=== PATIENT | male | born 1970 | race African-American/Black ===

== ENCOUNTER → 2020-02-08 | Outpatient (CLI) | payer BC ==
--- NOTE | 2020-02-08 13:44 | RAD ---
KNEE RIGHT 2V DATE: 02/08/2020 12:00 AM INDICATION: Reason: RIGHT KNEE PAIN / Spl. Instructions: / History: COMPARISON: None. FINDINGS: Bones: There is no evidence of acute fracture or dislocation. Joints: The joint spaces are normal. There is no joint effusion. Miscellaneous: None. IMPRESSION: Normal exam Electronically signed by: Jose Jo MD (02/08/2020 1:41 PM) [id number]
== END ==
LOC: DXRAD 09:32
DX: M25.561 Pain in right knee (principal)
CPT/HCPCS: 73560

== ENCOUNTER 2021-04-12 09:32 | Inpatient (IN) | payer BC ==
[~2021-04-12] VITALS: Ht 182.9 cm; Wt 104.8 kg
[2021-04-12] MEDS ORDERED: ONDANSETRON PF 4 MG/2 ML VIAL. ONE (11:00)
[2021-04-12] MEDS ORDERED: ONDANSETRON PF 4 MG/2 ML VIAL. IVP ONE (11:00)
[2021-04-12] MEDS ORDERED: ONDANSETRON ODT 4 MG TAB.RAPDIS PO ONE (11:00)
[2021-04-12] MEDS ORDERED: IV RINGERS SOLUTION,LACTATED 1,000 ML IV ONE (11:00)
--- NOTE | 2021-04-12 11:30 | RAD ---
EXAM: XR CHEST 1V 04/12/2021 10:59 AM CLINICAL INDICATION: Shortness breath, Covid positive COMPARISON: None TECHNIQUE: AP view of the chest FINDINGS: The heart is normal in size. Lungs are hypoexpanded. There are consolidative opacities in the right upper lobe and left lung base. No pleural effusion or pneumothorax. No acute osseous abnorm ality. IMPRESSION: Bilateral airspace opacities suspicious for multifocal pneumonia. Electronically signed by: Anna Berg MD (04/12/2021 11:27 AM) [id number]
[2021-04-12 11:54] LABS: BASO # 0.1 x10^3/uL (0.0-0.2); BASO % 0 % (0-3); EOS % 0 % (0-3); HEMATOCRIT 43.4 % (39.0-53.0); HEMOGLOBIN 14.8 g/dL (13.0-17.5); LYMPH # 0.8 x10^3/uL (1.0-4.8); LYMPH % 5 % (24-48); MEAN CORPUSCULAR HEMOGLOBIN 28 pg (25-35); MEAN CORPUSCULAR HGB CONC 34 g/dL (31-37); MEAN CORPUSCULAR VOLUME 83 fL (79-100); MONO # 1.3 x10^3/uL (0.0-1.1); MONO % 8 % (0-9); NEUT # 13.7 x10^3uL (1.8-7.7); NEUT % 86 % (31-73); PLATELET COUNT 548 x10^3/uL (140-400); RED BLOOD COUNT 5.22 x10^6/uL (4.30-5.70); RED CELL DISTRIBUTION WIDTH 14.3 % (11.5-14.5); WHITE BLOOD COUNT 15.9 x10^3/uL (4.0-11.0)
--- NOTE | 2021-04-12 12:07 | EKG ---
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
[2021-04-12 12:09] LABS: ALBUMIN 2.4 g/dL (3.4-5.0); ALBUMIN/GLOBULIN RATIO 0.4 (1.0-1.7); CALCIUM 8.6 mg/dL (8.5-10.1); CREATININE 1.2 mg/dL (0.7-1.3); GFR 77.5; MAGNESIUM 2.6 mg/dL (1.8-2.4); TOTAL BILIRUBIN 0.9 mg/dL (0.2-1.0); TOTAL PROTEIN 8.2 g/dL (6.4-8.2)
[2021-04-12] MEDS ORDERED: IOHEXOL 350 MG/ML 100 ML VIAL. ONE (12:09)
[2021-04-12] MEDS ORDERED: IOHEXOL 350 MG/ML 100 ML VIAL. IV ONE (12:15)
[2021-04-12 12:24] LABS: INFLUENZA A PATIENT NEGATIVE (NEGATIVE); INFLUENZA B PATIENT NEGATIVE (NEGATIVE)
--- NOTE | 2021-04-12 12:35 | PHYS DOC ---
Past History Past Medical History: Hypertension (MAIK KELLY) Past Surgical History: Other Additional Past Surgical Histo: HERNIA REPAIR, RIGHT ACHILLES REPAIR (MAIK KELLY) Smoking: Non-smoker Alcohol Use: None Drug Use: None (MAIK KELLY) General Adult EDM: Chief Complaint: SHORTNESS OF BREATH HPI: HPI: Patient is a 50 year old male with history of hypertension who presents with 1 week history of shortness of breath, nasal congestion and NVD. Patient reports that he noticed his symptoms worsened significantly on Saturday (4 days ago at). Today, he is not able to keep down clear fluids. He tested positive for COVID- 19 2 days ago. Patient denies fever, chills, night sweats, cough, sore throat, chest pain, palpitations. He denies sick contacts, vaccination against COVID-19 or flu shot this season. (MAIK KELLY) Review of Systems: Review of Systems: Constitutional: See HPI Eyes: Denies change in visual acuity, visual field deficits or discharge HENT: See HPI Respiratory: See HPI Cardiovascular: Denies chest pain, palpitations or edema GI: See HPI : Denies dysuria or hematuria Musculoskeletal: Denies back pain or joint pain Integument: Denies rash or other skin lesion Neurologic: Denies headache, focal weakness or sensory changes (MAIK KELLY) Current Medications: Current Meds: Current Medications Medications (Trade) Dose Ordered Sig/Grace Start Time Stop Time Status Last Admin Dose Admin Iohexol (Omnipaque 350 Mg/ml) 100 ml 1X ONCE 04/12/21 12:15 04/12/21 12:16 UNV Lactated Ringer's 1,000 ml @ 1,000 mls/hr 1X ONCE 04/12/21 11:00 04/12/21 11:59 DC 04/12/21 11:23 1,000 MLS/HR Ondansetron HCl (Zofran Odt) 4 mg 1X ONCE 04/12/21 11:00 04/12/21 11:01 DC Ondansetron HCl (Zofran) 4 mg STK-MED ONCE 04/12/21 11:00 04/12/21 11:01 DC (MAIK KELLY) Allergies: Allergies: Allergies Coded Allergies Type Severity Reaction Last Updated Verified No Known Drug Allergies 04/12/21 No (MAIK KELLY) Physical Exam: PE: Constitutional: Well developed, well nourished, no acute distress, patient appears fatigued. HENT: Normocephalic, atraumatic, bilateral external ears normal, nose normal. Eyes: EOMI, conjunctiva normal, no discharge. Neck: Normal range of motion, no stridor. Cardiovascular: RRR without murmurs, rubs or gallops. Pulmonary: Lung sounds clear to auscultation bilaterally but diminished throughout R>L. Skin: Warm, dry, no erythema, no rash. Extremities: No tenderness, no cyanosis, no clubbing, ROM intact, no edema. Neurologic: Alert and oriented x4, motor and sensory function grossly intact, no focal deficits noted. (MAIK KELLY) Current Patient Data: Labs: Laboratory Tests Test 04/12/21 11:15 04/12/21 11:25 White Blood Count 15.9 x10^3/uL (4.0-11.0) Red Blood Count 5.22 x10^6/uL (4.30-5.70) Hemoglobin 14.8 g/dL (13.0-17.5) Hematocrit 43.4 % (39.0-53.0) Mean Corpuscular Volume 83 fL (79-100) Mean Corpuscular Hemoglobin 28 pg (25-35) Mean Corpuscular Hemoglobin Concent 34 g/dL (31-37) Red Cell Distribution Width 14.3 % (11.5-14.5) Platelet Count 548 x10^3/uL (140-400) Neutrophils (%) (Auto) 86 % (31-73) Lymphocytes (%) (Auto) 5 % (24-48) Monocytes (%) (Auto) 8 % (0-9) Eosinophils (%) (Auto) 0 % (0-3) Basophils (%) (Auto) 0 % (0-3) Neutrophils # (Auto) 13.7 x10^3uL (1.8-7.7) Lymphocytes # (Auto) 0.8 x10^3/uL (1.0-4.8) Monocytes # (Auto) 1.3 x10^3/uL (0.0-1.1) Eosinophils # (Auto) 0.0 x10^3/uL (0.0-0.7) Basophils # (Auto) 0.1 x10^3/uL (0.0-0.2) Sodium Level 131 mmol/L (136-145) Potassium Level 3.0 mmol/L (3.5-5.1) Chloride Level 90 mmol/L (98-107) Carbon Dioxide Level 28 mmol/L (21-32) Anion Gap 13 (6-14) Blood Urea Nitrogen 20 mg/dL (8-26) Creatinine 1.2 mg/dL (0.7-1.3) Estimated GFR (Cockcroft-Gault) 77.5 BUN/Creatinine Ratio 17 (6-20) Glucose Level 122 mg/dL (70-99) Lactic Acid Level 2.4 mmol/L (0.4-2.0) Calcium Level 8.6 mg/dL (8.5-10.1) Magnesium Level 2.6 mg/dL (1.8-2.4) Total Bilirubin 0.9 mg/dL (0.2-1.0) Aspartate Amino Transf (AST/SGOT) 32 U/L (15-37) Alanine Aminotransferase (ALT/SGPT) 31 U/L (16-63) Alkaline Phosphatase 88 U/L (46-116) Total Protein 8.2 g/dL (6.4-8.2) Albumin 2.4 g/dL (3.4-5.0) Albumin/Globulin Ratio 0.4 (1.0-1.7) Lipase 40 U/L (73-393) Influenza Type A (Rapid) Negative (NEGATIVE) Influenza Type B (Rapid) Negative (NEGATIVE) SARS-CoV-2 Antigen (Rapid) Negative (NEGATIVE) Vital Signs: Vital Signs Date Time Temp Pulse Resp B/P (MAP) Pulse Ox O2 Delivery O2 Flow Rate FiO2 04/12/21 11:43 77 24 132/69 (90) 95 Nasal Cannula 6.0 04/12/21 11:13 81 24 166/76 (106) 93 Nasal Cannula 6.0 04/12/21 10:35 99.2 94 24 163/87 (112) 76 Room Air (MAIK KELLY) EKG: EKG: EKG Interpreted by Dr. Pedersen at 1201: Regular rate and rhythm 77 bpm with no ectopic beats. T wave inversions in leads III and aVF. QT 420 ms/QTc 477 ms. No STEMI. (MAIK KELLY) Radiology/Procedures: Radiology/Procedures: PROCEDURE: CHEST AP ONLY EXAM: XR CHEST 1V 04/12/2021 10:59 AM CLINICAL INDICATION: Shortness breath, Covid positive COMPARISON: None TECHNIQUE: AP view of the chest FINDINGS: The heart is normal in size. Lungs are hypoexpanded. There are consolidative opacities in the right upper lobe and left lung base. No pleural effusion or pneumothorax. No acute osseous abnormality. IMPRESSION: Bilateral airspace opacities suspicious for multifocal pneumonia. Electronically signed by: Anna Berg MD (04/12/2021 11:27 AM) [id number] PROCEDURE: CT ANGIOGRAPHY CHEST EXAM: CT angiography of the chest with intravenous contrast. HISTORY: Shortness of breath. Covid 19. TECHNIQUE: Computed tomographic images of the chest were obtained following the administration of intravenous contrast according to angiography protocol. Multiplanar reformatting was performed and three dimensional maximum intensity projection images were obtained. *One or more of the following individualized dose reduction techniques were utilized for this examination: 1. Automated exposure control. 2. Adjustment of the mA and/or kV according to patient size. 3. Use of iterative reconstruction technique. COMPARISON: None. FINDINGS: There are bilateral pulmonary emboli within the right lower lobar and segmental pulmonary arteries and left lower lobe segmental and subsegmental pulmonary arteries. No saddle and malleolus is seen. The heart is normal in size. The aorta is normal in caliber. There are multiple prominent mediastinal and hilar lymph nodes. There is confluent groundglass opacity in a predominantly posterior and peripheral distribution within the right greater than left lungs. There is superimposed linear atelectasis or infiltrate along the right minor pleural fissure. There is no consolidation. There is no pleural effusion or pneumothorax. Evaluation of the upper abdomen demonstrates nonspecific perinephric stranding. There is no convincing acute finding. There are degenerative changes involving the spine. There is no suspicious or acute osseous finding. IMPRESSION: 1. Bilateral pulmonary emboli involving the right lower lobar and segmental pulmonary arteries and left lower lobe segmental and subsegmental pulmonary arteries. 2. Extensive bilateral groundglass infiltrate. This can be seen with Covid 19 pneumonia. Follow-up to confirm resolution. 3. Mediastinal and hilar lymphadenopathy, likely reactive given the aforementioned infiltrate. Attention at the time of follow-up can be performed to confirm resolution. Findings were discussed with nurse Stiles in the ED at 1250 hours on 04/12/2021. FOR INTERNAL CODING PURPOSES RESULT CODE: (C) Electronically signed by: Sofia Moreno MD (04/12/2021 12:56 PM) [id number] (MAIK KELLY) Heart Score: C/O Chest Pain: No (MAIK KELLY) Course & Med Decision Making: Course & Med Decision Making Pertinent Labs and Imaging studies reviewed. (See chart for details) 50-year-old male with past medical history of hypertension presents to the [facility] with multiple complaints concerning for viral syndrome. While in the waiting room, he was noted to be hypoxic at 85% on room air. Upon attempting to ambulate, he desatted into the mid 70s. He was placed on 6 L nasal cannula and his oxygen saturation returned to 96%. He has known Covid positive. These complaints and presentation together warrants hospital ad mission. Work-up today will consist of labs that include lactate and blood cultures, chest x-ray, EKG, urinalysis and swabs for influenza A&B as well as COVID-19, which are required for admission. Patient provided with IV fluid bolus as well as IV Zofran. Chest x-ray shows bilateral opacities concerning for multifocal pneumonia, however CT angio chest ordered to rule out PE as well. Bilateral lower segment PEs seen on CTA. Patient will be at admitted to hospitalist Dr. Burt, who gladly accepts. Patient started on Rocephin, azithromycin, dexamethasone and Lovenox. (MAIK KELLY) Course & Med Decision Making I was the Attending physician on the above date of service of this patient. This patient was evaluated, examined, treated, and dispositioned from the emergency department by the mid-level practitioner. I reviewed case after seeing that yuniel torres had severe desaturations but otherwise well-appearing and improved with supplemental oxygen. I recommended CT angiogram. Patient's pulmonary emboli nonmassive in nature with no RV strain. Anticoagulation started and given ongoing need for supplemental oxygen in setting of acute disease patient admitted Electronically signed, Aurelio Pedersen DO (AURELIO PEDERSEN DO) Kayla Disclaimer: Kayla Disclaimer: This electronic medical record was generated, in whole or in part, using a voice recognition dictation system. (MAIK KELLY) Departure Departure: Impression: Primary Impression: Acute hypoxemic respiratory failure due to COVID-19 Additional Impressions: Nausea, vomiting and diarrhea Benign hypertension Pulmonary emboli Qualified Codes: I26.94 - Multiple subsegmental pulmonary emboli without acute cor pulmonale Disposition: ADMITTED INPATIENT Admitting Physician: Ruperto Burt (MAIK KELLY) Admitting Physician: Ruperto Burt (AURELIO PEDERSEN DO) Condition: GUARDED Referrals: YEISON ARRINGTON (PCP) MAIK KELLY Apr 12, 2021 12:35 AURELIO PEDERSEN DO Apr 13, 2021 06:19
--- NOTE | 2021-04-12 12:58 | RAD ---
EXAM: CT angiography of the chest with intravenous contrast. HISTORY: Shortness of breath. Covid 19. TECHNIQUE: Computed tomographic images of the chest were obtained following the administration of int ravenous contrast according to angiography protocol. Multiplanar reformatting was performed and three dimensional maximum intensity projection images were obtained. *One or more of the following individualized dose reduction techniques were utilized for this examina tion: 1. Automated exposure control. 2. Adjustment of the mA and/or kV according to patient size. 3. Use of iterative reconstruction technique. COMPARISON: None. FINDINGS: There are bilateral pulmonary emboli within the right lower lobar and segmental pulmonary a rteries and left lower lobe segmental and subsegmental pulmonary arteries. No saddle and malleolus is seen. The heart is normal in size. The aorta is normal in caliber. There are multiple prominent mediastinal and hilar lymph nodes. There is confluent groundglass opacit y in a predominantly posterior and peripheral distribution within the right greater than left lungs. There is superimposed linear atelectasis or infiltrate along the right minor pleural fissure. There i s no consolidation. There is no pleural effusion or pneumothorax. Evaluation of the upper abdomen demonstrates nonspecific perinephric stranding. There is no convincin g acute finding. There are degenerative changes involving the spine. There is no suspicious or acute osseous finding. IMPRESSION: 1. Bilateral pulmonary emboli involving the right lower lobar and segmental pulmonary arteries and le ft lower lobe segmental and subsegmental pulmonary arteries. 2. Extensive bilateral groundglass infiltrate. This can be seen with Covid 19 pneumonia. Follow-up to confirm resolution. 3. Mediastinal and hilar lymphadenopathy, likely reactive given the aforementioned infiltrate. Attent ion at the time of follow-up can be performed to confirm resolution. Findings were discussed with nurse Stiles in the ED at 1250 hours on 04/12/2021. FOR INTERNAL CODING PURPOSES RESULT CODE: (C) Electronically signed by: Sofia Moreno MD (04/12/2021 12:56 PM) [id number]
[2021-04-12] MEDS ORDERED: AZITHROMYCIN 500 MG in IV NORMAL SALINE 250ML 250 ML IV ONE (13:00)
[2021-04-12] MEDS ORDERED: DEXAMETHASONE SOD PHOS 10 MG/ML VIAL. IV ONE (13:00)
[2021-04-12] MEDS ORDERED: ENOXAPARIN ** NOTE DOSE ** SYRINGE SQ ONE (13:00)
[2021-04-12 13:04] LABS: % LYMPHS 14 % (24-48); % MONOS 2 % (0-10); % SEGS 84 % (35-66)
[2021-04-12 13:05] LABS: PLT ESTIMATE INCREASED (ADEQUATE)
[2021-04-12 13:07] LABS: SCHISTOCYTES OCC
[2021-04-12] MEDS ORDERED: IV NORMAL SALINE 50ML 50 ML ONE (13:19)
[2021-04-12] MEDS ORDERED: cefTRIAXone SODIUM 1 GM VIAL ONE (13:19)
[2021-04-12] MEDS ORDERED: AZITHROMYCIN 500 MG VIAL. IV ONE (13:20)
[2021-04-12] MEDS ORDERED: IV NORMAL SALINE 250ML 250 ML ONE (13:20)
[2021-04-12] MEDS ORDERED: POTASSIUM CHLORIDE 20 MEQ TABLET.ER. PO ONE (14:15)
[2021-04-12] MEDS: ONDANSETRON PF 4 MG/2 ML VIAL. IVP PRN (17:28)
--- NOTE | 2021-04-12 19:56 | HP ---
DATE OF SERVICE: 04/12/2021 ADMIT DATE: 04/12/2021 HISTORY OF PRESENT ILLNESS: The patient is a 50-year-old -[place] male patient who presented to the Emergency Room with complaint of generalized weakness, shortness of breath, nasal congestion, nausea, vomiting as well as diarrhea. The patient reported that he noticed that his symptoms worsened significantly on Saturday, 4 days ago. Today, he is not able to keep down any fluids. He tested positive for COVID-19 two days ago. The patient denies any fever, chills, night sweats, cough, sore throat, chest pain, palpitation. Denied any sick contact. He was not vaccinated for COVID-19 or flu shot in this season. He was extensively investigated and has had lab work as well as imaging studies. His chest x-ray showed bilateral airspace opacities suspicious for multifocal pneumonia. His CT angio of the chest showed he has bilateral pulmonary emboli involving the right lower lobar and segmental pulmonary arteries and left lower lobe segmental and subsegmental pulmonary arteries. He has extensive bilateral ground glass infiltrate, this can be seen with COVID-19 pneumonia, has also mediastinal hilar lymphadenopathy, likely reactive. Given the aforementioned infiltrate, ____ planned followup can be performed to confirm resolution. The patient was admitted with COVID-19 pneumonia, questionable superimposed community-acquired pneumonia, bilateral pulmonary emboli. PAST MEDICAL HISTORY: Significant for hypertension, severe osteoarthritis of the right knee. PAST SURGICAL HISTORY: Significant for right Achilles tendon repair and ventral hernia repair. ALLERGIES: He has no known drug allergies. MEDICATIONS: He is not on any medication by prescription. FAMILY HISTORY: He has one brother and one sister older, both healthy. His father is alive at age 71. Mother alive at age 69. She has dementia. SOCIAL HISTORY: He is , has 3 sons and 1 daughter. He never smoked, drink alcohol very occasionally. Does not use drugs. He works at [employer]. REVIEW OF SYSTEMS: As per history of present illness. PHYSICAL EXAMINATION: GENERAL: On arrival to the Emergency Room, the patient is somewhat tachypneic, hypoxic, but there is no pallor, jaundice, cyanosis, no lymphadenopathy, no thyromegaly, no jugular venous distention. No limb edema. VITAL SIGNS: His heart rate was 94, blood pressure was 163/87, temperature was 98.2, respiratory rate was 24 and oxygen saturation was 76% on room air. It has improved to 93% on 6 liters of oxygen. HEAD, EYES, EARS, NOSE, AND THROAT: Normocephalic, atraumatic. NECK: Supple. HEART: Normal first and second heart sounds. No gallop, rub or murmur. CHEST: Clear to auscultation, no crepitation or rhonchi. ABDOMEN: Distended, soft, nontender. NEUROLOGIC: He was grossly intact. LABORATORY DATA: Showed a white cell count 15,800, hemoglobin 14.8, hematocrit 43, MCV 83 and platelet count of 548,000. Her prothrombin time, INR and APTT are slightly elevated. His chemistry showed a serum sodium 131, potassium 3, chloride 90, bicarbonate 26, anion gap of 13, BUN 20, creatinine 1.2, estimated GFR was 77 mL per minute, his glucose was 122, lactic acid was 2.4, calcium was 8.6, magnesium was 2.6. Total bilirubin, AST, ALT and alkaline phosphatase were normal. His total protein 8.2, albumin was 2.4, serum lipase is 40. His influenza A and B were negative and SARS-CoV-2 antigens rapid testing was negative. His chest x-ray showed the patient has bilateral airspace opacities suspicious for multifocal pneumonia. The heart is normal in size. Lungs are hyperexpanded. There are consolidative opacities in the right upper lobe and left lung base. No pleural effusion, no pneumothorax. The CT angio of the chest showed bilateral pulmonary emboli involving the right lower lobar and segmental pulmonary arteries and left lower lobe segmental and subsegmental pulmonary arteries, has extensive bilateral ground glass infiltrate, this can be seen with COVID-19 pneumonia. She has mediastinal and hilar lymphadenopathy, likely reactive. The patient was started on IV azithromycin, IV ceftriaxone and given lactate a liter of lactated Ringer and started on Lovenox and dexamethasone. My plan is to continue all this treatment and repeat all his lab works again tomorrow. ROBERT DOYLE: Hardik TID: [id number]
[2021-04-12] MEDS ORDERED: PROCHLORPERAZINE 10 MG/2 ML VIAL. IV ONE (20:30)
[2021-04-12 22:04] VITALS: BP 138/87
[2021-04-13] MEDS: ENOXAPARIN ** NOTE DOSE ** SYRINGE SQ SCH ×3 (00:30→20:17)
--- NOTE | 2021-04-13 02:48 | NUR ---
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 PT AMBULATED FROM GURNEY TO BED INDEPENDENTLY. PT IS AOX4. POC DISCUSSED W/ VERBALIZED UNDERSTANDING. CALL LIGHT IN REACH WILL CONTINUE TO MONITOR.
[2021-04-13 06:51] LABS: HEMATOCRIT 42.2 % (39.0-53.0); HEMOGLOBIN 14.2 g/dL (13.0-17.5); RED BLOOD COUNT 5.13 x10^6/uL (4.30-5.70); RED CELL DISTRIBUTION WIDTH 14.5 % (11.5-14.5); WHITE BLOOD COUNT 13.7 x10^3/uL (4.0-11.0)
[2021-04-13 07:00] VITALS: BP 125/79
[2021-04-13 07:10] LABS: ALBUMIN 2.3 g/dL (3.4-5.0); ALBUMIN/GLOBULIN RATIO 0.5 (1.0-1.7); C REACTIVE PROTEIN 137.3 mg/L (0-3.3); CALCIUM 8.4 mg/dL (8.5-10.1); CREATININE 1.3 mg/dL (0.7-1.3); GFR 70.7; POTASSIUM 3.7 mmol/L (3.5-5.1); TOTAL BILIRUBIN 0.6 mg/dL (0.2-1.0)
[2021-04-13] MEDS: DEXAMETHASONE SOD PHOS 4 MG/ML VIAL. IVP SCH (08:20)
[2021-04-13] MEDS: ASCORBIC ACID 1,000 MG TABLET PO SCH (08:21)
[2021-04-13] MEDS: ZINC SULFATE 220 MG CAPSULE. PO SCH (08:21)
[2021-04-13] MEDS: ONDANSETRON PF 4 MG/2 ML VIAL. IVP PRN ×3 (08:21→20:17)
[2021-04-13] MEDS: AZITHROMYCIN 250 MG TABLET. PO SCH (08:21)
[2021-04-13 11:32] VITALS: BP 133/82
[2021-04-13] MEDS: LACTOBACILLUS RHAMNOSUS GG 1 CAPSULE. PO SCH ×2 (13:50→20:17)
[2021-04-13 15:26] VITALS: BP 130/84
[2021-04-13] MEDS ORDERED: PANTOPRAZOLE IV 40 MG VIAL. IVP ONE (16:30)
[2021-04-13] MEDS: IV NORMAL SALINE 1,000ML 1,000 ML IV SCH (16:48)
[2021-04-13 19:00] VITALS: BP 134/87
[2021-04-14] MEDS: MAG HYDROX/AL HYDROX/SIMETH 30 ML ORAL.SUSP PO PRN ×2 (00:41→12:25)
[2021-04-14 05:00] VITALS: BP 127/80
[2021-04-14] MEDS: IV NORMAL SALINE 1,000ML 1,000 ML IV SCH ×3 (05:12→21:06)
[2021-04-14 06:23] LABS: HEMATOCRIT 38.9 % (39.0-53.0); HEMOGLOBIN 12.8 g/dL (13.0-17.5); RED BLOOD COUNT 4.63 x10^6/uL (4.30-5.70); RED CELL DISTRIBUTION WIDTH 14.6 % (11.5-14.5)
[2021-04-14 06:38] LABS: ALBUMIN 2.1 g/dL (3.4-5.0); ALBUMIN/GLOBULIN RATIO 0.5 (1.0-1.7); CREATININE 1.2 mg/dL (0.7-1.3); GFR 77.5; POTASSIUM 3.5 mmol/L (3.5-5.1); TOTAL BILIRUBIN 0.5 mg/dL (0.2-1.0); TOTAL PROTEIN 6.1 g/dL (6.4-8.2)
[2021-04-14] MEDS: PANTOPRAZOLE IV 40 MG VIAL. IVP SCH (07:53)
[2021-04-14] MEDS: LACTOBACILLUS RHAMNOSUS GG 1 CAPSULE. PO SCH ×2 (07:54→21:05)
[2021-04-14] MEDS: ASCORBIC ACID 1,000 MG TABLET PO SCH (07:54)
[2021-04-14] MEDS: AZITHROMYCIN 250 MG TABLET. PO SCH (07:54)
[2021-04-14] MEDS: ZINC SULFATE 220 MG CAPSULE. PO SCH (07:54)
[2021-04-14] MEDS: DEXAMETHASONE SOD PHOS 4 MG/ML VIAL. IVP SCH (07:54)
[2021-04-14] MEDS: ENOXAPARIN ** NOTE DOSE ** SYRINGE SQ SCH ×2 (07:55→21:06)
--- NOTE | 2021-04-14 08:48 | PN ---
DATE: 04/13/2021 SUBJECTIVE: The patient is resting, slightly propped up in bed, complaining of what seemed to be acid reflux and nausea, but no vomiting, had not had any bowel movement, but has ____ multiple times. He is maintaining his oxygen saturation at 96% on 5 liters of oxygen. Denied any chest pain. PHYSICAL EXAMINATION: GENERAL: When I examined him, he looked well and was clearly in no apparent respiratory distress. There is no pallor, jaundice, cyanosis. No lymphadenopathy, no thyromegaly, no jugular venous distention. No lower limb edema. VITAL SIGNS: His heart rate was 90, blood pressure was 130/84, temperature 97.6, respiratory rate was 20, and oxygen saturation was 94% on 5 liters of oxygen. HEAD, EYES, EARS, NOSE, AND THROAT: Normocephalic, atraumatic. NECK: Supple. HEART: Showed normal first and second heart sounds. No gallop or murmur. CHEST: Clear to auscultation, no crepitation or rhonchi. ABDOMEN: Distended, soft, nontender. NEUROLOGIC: He was grossly intact. His intake was 1900, output incompletely recorded. LABORATORY DATA: This morning showed a serum sodium 137, potassium 3.7, chloride 94, bicarbonate 32, anion gap of 11, BUN 25, creatinine 1.3. Estimated GFR was 70 mL per minute. His glucose 122. Lactic acid is down to 1.7. Calcium was 8.4. Total bilirubin, AST, ALT, alkaline phosphatase were normal. His C-reactive protein was 137. Total protein 7, albumin was 2.3. His coronavirus by PCR was positive. His D-dimer was high at 12.68. ASSESSMENT: 1. COVID-19 pneumonia. 2. Acute hypoxic respiratory failure. 3. Acute superimposed Community-acquired pneumonia. 4. Bilateral pulmonary emboli. 5. Hypertension. PLAN: To Continue with IV antibiotic in the form of Zithromax and ceftriaxone. Continue with dexamethasone. Continue with Lovenox 100 mg subcutaneously twice a day. Continue with zinc sulfate and ascorbic acid. I will add also Protonix 40 mg IV twice a day. DUC/ANDREW/ZAIDA DR: Hardik TID: [id number]
[2021-04-14 11:44] VITALS: BP 136/87
[2021-04-14] MEDS: ONDANSETRON PF 4 MG/2 ML VIAL. IVP PRN (12:25)
[2021-04-14 15:39] VITALS: BP 132/79
[2021-04-14 20:04] VITALS: BP 125/74
[2021-04-14 23:25] VITALS: BP 139/74
--- NOTE | 2021-04-15 03:26 | PN ---
DATE: 04/14/2021 SUBJECTIVE: The patient is resting, slightly propped up in bed, in no apparent distress. He continued to have cough with shortness of breath. He also complained of what seemed to be an acid reflux. We did start him on Protonix and Mylanta. PHYSICAL EXAMINATION: GENERAL: When I examined him this afternoon, he looked well and was slightly tachypneic, but there is no jaundice, cyanosis, no lymphadenopathy, no thyromegaly, no jugular venous distention. No limb edema. VITAL SIGNS: His heart rate was 66, blood pressure is 136/87, temperature was 98, respiratory rate 20, and oxygen saturation was 96% on 5 liters of oxygen. HEAD, EYES, EARS, NOSE AND THROAT: Normocephalic, atraumatic. NECK: Supple. HEART: Showed normal first and second heart sounds. No gallop or murmur. CHEST: Shows central trachea, equal bilateral expansion, air entry, vesicular breath sounds with bilateral basal crepitation. I could not appreciate any rhonchi. ABDOMEN: Distended, soft, nontender. NEUROLOGIC: He was grossly intact. His intake was 1900, no output was recorded. LABORATORY DATA: As of this morning, his white cell count was 19,000, hemoglobin 13, hematocrit 39, MCV 84, platelet count of 629,000. His chemistry showed a serum sodium 136, potassium 3.5, chloride 97, bicarbonate 31, anion gap of 8, BUN 24, creatinine 1.2, estimated GFR was 77 mL per minute, his glucose 122, calcium was 8. Total bilirubin, AST, ALT, alkaline phosphatase were normal. His C-reactive protein was high at 137.3, total protein 6.1, albumin 2.1 and serum lipase was 50. His D-dimer was 12.68, however, his CT angio was positive for bilateral pulmonary emboli. ASSESSMENT: 1. COVID-19 pneumonia. 2. Acute hypoxic respiratory failure. 3. Acute superimposed community-acquired pneumonia. 4. Bilateral pulmonary emboli. 5. Hypertension. 6. Gastroesophageal reflux disease. PLAN: To continue with IV antibiotic. Continue with dexamethasone. Continue with Lovenox. Continue with zinc sulfate and ascorbic acid. I have added also for Protonix and Mylanta. DUC/KIM DR: Hardik TID: [id number]
[2021-04-15 06:12] VITALS: BP 130/85
[2021-04-15] MEDS: PANTOPRAZOLE IV 40 MG VIAL. IVP SCH (08:21)
[2021-04-15] MEDS: DEXAMETHASONE SOD PHOS 4 MG/ML VIAL. IVP SCH (08:22)
[2021-04-15] MEDS: AZITHROMYCIN 250 MG TABLET. PO SCH (08:22)
[2021-04-15] MEDS: LACTOBACILLUS RHAMNOSUS GG 1 CAPSULE. PO SCH ×2 (08:22→20:15)
[2021-04-15] MEDS: ZINC SULFATE 220 MG CAPSULE. PO SCH (08:22)
[2021-04-15] MEDS: ASCORBIC ACID 1,000 MG TABLET PO SCH (08:22)
[2021-04-15] MEDS: ENOXAPARIN ** NOTE DOSE ** SYRINGE SQ SCH ×2 (08:23→20:16)
[2021-04-15] MEDS: IV NORMAL SALINE 1,000ML 1,000 ML IV SCH ×2 (08:23→20:17)
[2021-04-15 10:58] VITALS: BP 142/93
[2021-04-15 13:10] VITALS: BP 128/78
[2021-04-15 19:59] VITALS: BP 151/96
--- NOTE | 2021-04-15 21:24 | PN ---
DATE: 04/15/2021 SUBJECTIVE: The patient is resting, slightly propped up in bed, in no apparent distress. On questioning him, he stated he is feeling much better. In fact, his oxygen saturation was 98% on 5 liters of oxygen by nasal cannula. His appetite is improving and has been up to the bathroom multiple times. PHYSICAL EXAMINATION: GENERAL: When I examined him, he looked well and was clearly in no apparent respiratory distress. There is no pallor, jaundice, cyanosis or thyromegaly. No jugular venous distention. No limb edema. VITAL SIGNS: Heart rate was 79, blood pressure was 142/93, temperature was 97, respiratory rate 20, and oxygen saturation was 99% on 5 liters of oxygen. HEAD, EYES, EARS, NOSE, AND THROAT: Normocephalic, atraumatic. NECK: Supple. HEART: Showed normal first and second heart sounds. No gallop or murmur. CHEST: Shows central trachea, equal bilateral expansion, air entry, vesicular breath sounds with bilateral basal crepitation. I could not appreciate any rhonchi. ABDOMEN: Distended, soft, nontender. NEUROLOGIC: He was grossly intact. His intake over the last 24 hours was treated 2320. No output was recorded. LABORATORY DATA: Has no lab work done this morning. ASSESSMENT: 1. COVID-19 pneumonia. 2. Acute hypoxic respiratory failure. 3. Possible acute superimposed community-acquired pneumonia. 4. Bilateral pulmonary emboli. 5. Hypertension. 6. Gastroesophageal reflux disease. PLAN: To continue IV antibiotic. Continue with dexamethasone. Continue with Lovenox. Continue with zinc sulfate and ascorbic acid. Continue with Protonix and MiraLax. DUC/BHARATHI DR: Hardik TID: [id number]
[2021-04-16 05:23] VITALS: BP 150/95
[2021-04-16] MEDS: IV NORMAL SALINE 1,000ML 1,000 ML IV SCH (05:23)
[2021-04-16 07:40] LABS: HEMATOCRIT 38.3 % (39.0-53.0); HEMOGLOBIN 12.8 g/dL (13.0-17.5); RED BLOOD COUNT 4.57 x10^6/uL (4.30-5.70); RED CELL DISTRIBUTION WIDTH 14.2 % (11.5-14.5); WHITE BLOOD COUNT 12.6 x10^3/uL (4.0-11.0)
[2021-04-16 08:00] LABS: ALBUMIN 2.1 g/dL (3.4-5.0); ALBUMIN/GLOBULIN RATIO 0.5 (1.0-1.7); CREATININE 0.9 mg/dL (0.7-1.3); GFR 108.1; TOTAL BILIRUBIN 0.3 mg/dL (0.2-1.0); TOTAL PROTEIN 6.4 g/dL (6.4-8.2)
[2021-04-16] MEDS: ENOXAPARIN ** NOTE DOSE ** SYRINGE SQ SCH ×2 (09:12→21:26)
[2021-04-16] MEDS: AZITHROMYCIN 250 MG TABLET. PO SCH (09:13)
[2021-04-16] MEDS: ZINC SULFATE 220 MG CAPSULE. PO SCH (09:13)
[2021-04-16] MEDS: PANTOPRAZOLE IV 40 MG VIAL. IVP SCH (09:13)
[2021-04-16] MEDS: LACTOBACILLUS RHAMNOSUS GG 1 CAPSULE. PO SCH ×2 (09:13→21:26)
[2021-04-16] MEDS: ASCORBIC ACID 1,000 MG TABLET PO SCH (09:13)
[2021-04-16] MEDS: DEXAMETHASONE SOD PHOS 4 MG/ML VIAL. IVP SCH (09:18)
[2021-04-16] MEDS ORDERED: POTASSIUM CHLORIDE 20 MEQ TABLET.ER. PO SCH (10:00)
[2021-04-16 11:06] VITALS: BP 153/97
[2021-04-16] MEDS ORDERED: POTASSIUM CHLORIDE 20 MEQ TABLET.ER. PO ONE (14:15)
[2021-04-16 15:28] VITALS: BP 155/99
[2021-04-16 20:43] VITALS: BP 150/96
--- NOTE | 2021-04-16 21:49 | PN ---
DATE: 04/16/2021 SUBJECTIVE: The patient is resting, slightly propped up in bed, in no apparent respiratory distress. He is feeling generally much improved. He has been able to walk to the bathroom without difficulty. He is maintaining his oxygen saturation at 99% on 3 liters of oxygen. PHYSICAL EXAMINATION: GENERAL: When I saw him this afternoon, he looked well with no pallor, jaundice, cyanosis or thyromegaly. No jugular venous distention. No lower limb edema. VITAL SIGNS: Her heart rate was 77, blood pressure was 153/97, temperature 98.2, respiratory rate was 18 and oxygen saturation was 94% on 4 liters of oxygen. HEAD, EYES, EARS, NOSE, AND THROAT: Normocephalic, atraumatic. NECK: Supple. HEART: Showed normal first and second heart sounds. No gallop or murmur. CHEST: Shows central trachea, equal bilateral expansion, air entry, vesicular breath sounds, few bilateral basal crepitation, more so on the left than right. ABDOMEN: Distended, soft, nontender. NEUROLOGIC: He was grossly intact. His intake was 1260. No output was recorded. LABORATORY DATA: This morning showed a white cell count 12,600, hemoglobin 12.8, hematocrit 38, MCV 84 and platelet count of 626,000. His chemistry showed a serum sodium 136, potassium 3, chloride 100, bicarbonate 29, anion gap of 7, BUN 14, creatinine 0.9. Estimated GFR was 180 mL per minute. His glucose was 100, calcium was 8. Total bilirubin, AST, ALT, alkaline phosphatase were normal. Total protein 6.4, albumin was 2.1. ASSESSMENT: 1. COVID-19 pneumonia. 2. Acute hypoxic respiratory failure. 3. Possible superimposed community-acquired pneumonia. 4. Bilateral pulmonary emboli. 5. Hypertension. 6. Severe gastroesophageal reflux disease. 7. Hypokalemia. PLAN: To continue with IV antibiotic. Continue with dexamethasone. Continue with Lovenox. Continue with zinc sulfate and ascorbic acid. Continue with Protonix and MiraLax. DUC/SRUTHI DR: Hardik TID: [id number]
[2021-04-17 00:22] VITALS: BP 154/94
[2021-04-17 06:11] VITALS: BP 145/93
[2021-04-17] MEDS: PANTOPRAZOLE IV 40 MG VIAL. IVP SCH (08:02)
[2021-04-17] MEDS: DEXAMETHASONE SOD PHOS 4 MG/ML VIAL. IVP SCH (08:04)
[2021-04-17] MEDS: AZITHROMYCIN 250 MG TABLET. PO SCH (08:04)
[2021-04-17] MEDS: LACTOBACILLUS RHAMNOSUS GG 1 CAPSULE. PO SCH (08:04)
[2021-04-17] MEDS: POTASSIUM CHLORIDE 20 MEQ TABLET.ER. PO SCH ×2 (08:04→13:28)
[2021-04-17] MEDS: ZINC SULFATE 220 MG CAPSULE. PO SCH (08:05)
[2021-04-17] MEDS: ENOXAPARIN ** NOTE DOSE ** SYRINGE SQ SCH (08:05)
[2021-04-17] MEDS: ASCORBIC ACID 1,000 MG TABLET PO SCH (08:05)
[2021-04-17 11:00] VITALS: BP 147/96
[2021-04-17] MEDS ORDERED: POTASSIUM CHLORIDE 20 MEQ TABLET.ER. PO ONE (14:45)
[2021-04-17] MEDS ORDERED: DEXA6TAB6 PO (14:48)
[2021-04-17] MEDS ORDERED: APIX5TAB5 PO (14:48)
[2021-04-17] MEDS ORDERED: CEFD300C PO (14:48)
== END 2021-04-17 18:32 | disposition home or self-care (01) | DRG 177 ==
LOC: ER 09:32 → ER HOLD 13:03 → 1 SOUTH 20:04
PROVIDERS: ADMIT Internal Medicine; ATTEND Internal Medicine
DX: U07.1 COVID-19 (principal); I26.94 Multiple subsegmental thrombotic pulmonary emboli without acute cor pulmonale; J12.82 Pneumonia due to coronavirus disease 2019; J96.01 Acute respiratory failure with hypoxia; E87.6 Hypokalemia; I10 Essential (primary) hypertension; K21.9 Gastro-esophageal reflux disease without esophagitis; M17.11 Unilateral primary osteoarthritis, right knee
CPT/HCPCS: 36415; 71045; 71275; 80053; 83605; 83690; 83735; 83880; 85007; 85025; 85027; 85379; 85610; 85730; 86140; 87040; 87426; 87428; 93005; 96361; 96365; 96372; 96375; C9113; J0456; J0696; J0780; J1100; J1650; J2405; J7050; J7120; Q9967; U0003; 99285-25; J7030